=== PATIENT | male | born 1970 ===

== ENCOUNTER 2018-02-13 10:19 | Emergency (ER) | payer OTHER ==
[2018-02-13 10:22] VITALS: BMI 32.5
[2018-02-13 10:23] VITALS: TEMP 98.4
[2018-02-13] MEDS ORDERED: Sodium Chloride 0.9% 1,000 ML IV STA (10:33)
[2018-02-13 11:28] LABS: BASO % 0.2 % (0.0-2.0); EOS # 0.1 K/uL (0.0-0.7); EOS % 1.1 % (0.0-4.0); HEMOGLOBIN 16.9 g/dL (12.0-18.0); LYMPH # 0.6 K/uL (1.0-4.3); LYMPH % 10.2 % (20.0-40.0); MEAN CELL VOLUME 90.2 fl (80.0-94.0); MEAN CORPUSCULAR HGB CONC 34.3 g/dL (33.0-37.0); MEAN PLATELET VOLUME 8.1 fl (7.2-11.7); MONO # 0.7 K/uL (0.0-0.8); MONO % 10.9 % (0.0-10.0); NEUT # 4.9 K/uL (1.8-7.0); NEUT % 77.6 % (50.0-75.0); NRBC % 0.1 % (0.0-0.0); RBC 5.45 Mil/uL (4.40-5.90); RED CELL DISTRIBUTION WIDTH 13.7 % (11.5-14.5); WHITE BLOOD COUNT 6.3 K/uL (4.8-10.8)
[2018-02-13 11:29] LABS: ALB/GLOB RATIO 1.3 (1.0-2.1); ALBUMIN 4.7 g/dL (3.5-5.0); ALT/SGPT 65 U/L (21-72); AST/SGOT 41 U/L (17-59); BLOOD UREA NITROGEN 19 mg/dl (9-20); CALCIUM 9.2 mg/dL (8.4-10.2); GFR AFRICAN-AMERICAN > 60; GFR NON-AFRICAN AMERICAN > 60; LIPASE 138 U/L (23-300)
[2018-02-13] MEDS ORDERED: Alum-Mag Hydrox-Simethicone Susp (30 mL) PO STA (11:56)
[2018-02-13] MEDS ORDERED: Alum-Mag Hydrox-Simethicone Susp (30 mL) ONE (12:16)
--- NOTE | 2018-02-13 12:59 | ED PDOC ---
HPI: Abdomen Time Seen by Provider: 02/13/18 10:28 Chief Complaint (Nursing): Abdominal Pain Chief Complaint (Provider): Diffuse abdominal pain, nausea and diarrhea x 1 day History Per: Patient, Family History/Exam Limitations: no limitations Onset/Duration Of Symptoms: Days (1) Current Symptoms Are (Timing): Still Present Severity: Moderate Location Of Pain/Discomfort: Diffuse Quality Of Discomfort: Cramping, "Pain" Associated Symptoms: Nausea. denies: Fever, Chills, Vomiting Past Medical History Reviewed: Historical Data, Nursing Documentation, Vital Signs Vital Signs: Last Vital Signs Temp 98.4 F 02/13/18 10:22 Pulse 98 H 02/13/18 10:22 Resp 17 02/13/18 10:22 BP 107/66 02/13/18 10:22 Pulse Ox 98 02/13/18 10:22 - Medical History PMH: No Chronic Diseases - Surgical History Surgical History: No Surg Hx - Family History Family History: States: No Known Family Hx - Living Arrangements Living Arrangements: With Family - Social History Current smoker - smoking cessation education provided: No Alcohol: None Drugs: Denies - Home Medications Home Medications: Ambulatory Orders Medication Instructions Recorded Dicyclomine [Bentyl] 20 mg PO Q6H PRN #20 tab 02/13/18 Ondansetron ODT [Zofran ODT] 4 mg PO QID #10 odt 02/13/18 - Allergies Allergies/Adverse Reactions: Allergies Allergy/AdvReac Type Severity Reaction Status Date / Time No Known Allergies Allergy Verified 02/13/18 10:28 Review of Systems ROS Statement: Except As Marked, All Systems Reviewed And Found Negative Constitutional: Negative for: Fever, Chills Gastrointestinal: Positive for: Nausea, Abdominal Pain, Diarrhea Neurological: Negative for: Weakness Physical Exam - Reviewed Nursing Documentation Reviewed: Yes Vital Signs Reviewed: Yes - Physical Exam Appears: Positive for: Well, Non-toxic, No Acute Distress Head Exam: Positive for: ATRAUMATIC, NORMAL INSPECTION, NORMOCEPHALIC Skin: Positive for: Normal Color, Warm, DRY Eye Exam: Positive for: Normal appearance ENT: Positive for: Normal ENT Inspection Neck: Positive for: Normal, Painless ROM Cardiovascular/Chest: Positive for: Regular Rate, Rhythm Respiratory: Positive for: CNT, Normal Breath Sounds Gastrointestinal/Abdominal: Positive for: Normal Exam, Soft, Tenderness ( Diffuse ) Back: Positive for: Normal Inspection Extremity: Positive for: Normal ROM Neurologic/Psych: Positive for: Alert, Oriented - Laboratory Results Result Diagrams: 02/13/18 11:05 02/13/18 11:05 - ECG O2 Sat by Pulse Oximetry: 98 Medical Decision Making Medical Decision Making: LAbs normal. Urine normal. Pt reports feeling better on re-evaluation. Disposition - Clinical Impression Clinical Impression: Viral gastroenteritis - Patient ED Disposition Is Patient to be Admitted: No - Disposition Disposition: Routine/Home Disposition Time: 13:03 Condition: STABLE Prescriptions: Dicyclomine [Bentyl] 20 mg PO Q6H PRN #20 tab PRN Reason: Cramping Ondansetron ODT [Zofran ODT] 4 mg PO QID #10 odt Instructions: Viral Gastroenteritis, Adult (DC)
[2018-02-13 14:47] VITALS: BP 125/86; RESP 18; O2SAT 100
[2018-02-13 15:26] VITALS: PULSE 85
== END 2018-02-13 15:31 | disposition home or self-care (01) ==
LOC: H.ER 10:19
DX: A08.4 Viral intestinal infection, unspecified (principal)
CPT/HCPCS: 80053; 83690; 85025; 99283; J7040

== ENCOUNTER 2018-10-17 06:07 | Emergency (ER) | payer OTHER ==
[2018-10-17 06:07] VITALS: BMI 32.5
[2018-10-17 06:19] VITALS: BP 109/71; PULSE 85; RESP 17; TEMP 98.6; O2SAT 97
[2018-10-17] MEDS ORDERED: Albuterol-Ipratrop 3 mg / 0.5 (3 ml) UD INH STA (06:32)
[2018-10-17] MEDS ORDERED: Promethazine/Cod 6.25mg-10mg/5ml Syr UD PO STA (06:32)
[2018-10-17] MEDS ORDERED: Albuterol-Ipratrop 3 mg / 0.5 (3 ml) UD ONE (06:36)
--- NOTE | 2018-10-17 06:36 | ED PDOC ---
HPI: Influenza Time Seen by Provider: 10/17/18 06:28 Chief Complaint: Cough, Cold, Congestion Chief Complaint (Provider): Cough, Cold, Congestion History Per: Patient Exam Limitations: no limitations Symptoms include: fever, cough Additional complaint(s):: 48 y/o male with no significant PMHx presents to the ED for cough and fever, onset x2 weeks ago. Patient reports that he has cough that has been productive of green phlegm. Patient states he has been taking Nyquil with no relief. Patient denies vomiting, diarrhea. He has no associated shortness of breath or chest pain. Past Medical History Reviewed: Historical Data, Nursing Documentation, Vital Signs Vital Signs: Last Vital Signs Temp 98.6 F 10/17/18 06:16 Pulse 85 10/17/18 06:16 Resp 17 10/17/18 06:16 BP 109/71 10/17/18 06:16 Pulse Ox 97 10/17/18 06:16 - Medical History PMH: No Chronic Diseases - Surgical History Other surgeries: Cataract surgery in right eye - Family History Family History: States: Unknown Family Hx - Social History Current smoker - smoking cessation education provided: Yes (1-2 Cigars daily) - Home Medications Home Medications: Ambulatory Orders Medication Instructions Recorded Dicyclomine [Bentyl] 20 mg PO Q6H PRN #20 tab 02/13/18 Ondansetron ODT [Zofran ODT] 4 mg PO QID #10 odt 02/13/18 Albuterol Sulfate [Proair Hfa] 0.09 mg IH Q6 PRN #1 inh 10/17/18 Benzonatate [Tessalon Perle] 100 mg PO TID PRN #15 capsule 10/17/18 levoFLOXacin [Levaquin] 500 mg PO DAILY #10 tab 10/17/18 - Allergies Allergies/Adverse Reactions: Allergies Allergy/AdvReac Type Severity Reaction Status Date / Time No Known Allergies Allergy Verified 02/13/18 10:28 Review of Systems ROS Statement: Except As Marked, All Systems Reviewed And Found Negative Constitutional: Positive for: Fever Cardiovascular: Negative for: Chest Pain Respiratory: Positive for: Cough. Negative for: Shortness of Breath Gastrointestinal: Negative for: Vomiting, Diarrhea Physical Exam - Reviewed Nursing Documentation Reviewed: Yes Vital Signs Reviewed: Yes - Physical Exam Appears: Positive for: Well, Non-toxic, No Acute Distress Head Exam: Positive for: ATRAUMATIC, NORMOCEPHALIC Skin: Positive for: Normal Color, Warm, DRY Eye Exam: Positive for: EOMI, Normal appearance, PERRL ENT: Positive for: Normal ENT Inspection Neck: Positive for: Normal, Painless ROM Cardiovascular/Chest: Positive for: Regular Rate, Rhythm. Negative for: Murmur Respiratory: Positive for: Rales (at base of left lung). Negative for: Respiratory Distress Gastrointestinal/Abdominal: Positive for: Normal Exam, Soft. Negative for: Tenderness Extremity: Positive for: Normal ROM. Negative for: Pedal Edema, Deformity Neurologic/Psych: Positive for: Alert, Oriented. Negative for: Motor/Sensory Deficits Medical Decision Making Medical Decision Making: Time: 06:31 Initial Impression: 48 y/o male with cough and fever Initial Plan: * CXR * Duoneb 6 ml * Promethazine/Codeine 10 ml 06:45 Patient x-ray reviewed shows no clinically significant abnormalities. Patient reports improvement of symptoms and is stable for discharge. Diagnosis is acute bronchitis. Scribe Attestation: Documented by Lucas Brody acting as a scribe for Gonzalo Nunez MD. Provider Scribe Attestation: All medical record entries made by the Scribe were at my direction and personally dictated by me. I have reviewed the chart and agree that the record accurately reflects my personal performance of the history, physical exam, medical decision making, and the department course for this patient. I have also personally directed, reviewed, and agree with the discharge instructions and disposition. - ECG O2 Sat by Pulse Oximetry: 97 Disposition - Clinical Impression Clinical Impression: Bronchitis - Patient ED Disposition Is Patient to be Admitted: No - Disposition Referrals: [facility] [Outside] Disposition: Routine/Home Disposition Time: 06:45 Condition: STABLE Additional Instructions: CAROL ALLEN, thank you for letting us take care of you today. Your provider was Gonzalo Nunez MD and you were treated for COUGHING,CONGESTION. The emergency medical care you received today was directed at your acute symptoms. If you were prescribed any medication, please fill it and take as directed. It may take several days for your symptoms to resolve. Return to the Emergency Department if your symptoms worsen, do not improve, or if you have any other problems. Please contact your doctor or call one of the physicians/clinics you have been referred to that are listed on the Patient Visit Information form that is included in your discharge packet. Bring any paperwork you were given at discharge with you along with any medications you are taking to your follow up visit. Our treatment cannot replace ongoing medical care by a primary care provider outside of the emergency department. Thank you for allowing the [facility] team to be part of your care today. If you had an X-Ray or CT scan: A Radiologist will review the ED reading if any change in treatment is needed we will contact you. If you had a blood, urine, or wound culture: It will take several days for the results, if any change in treatment is needed we will contact you. If you had an STI test: It will take 48 hours for the results. Please call after 1 week if you have not heard back. Prescriptions: Albuterol Sulfate [Proair Hfa] 0.09 mg IH Q6 PRN #1 inh PRN Reason: Shortness Of Breath Benzonatate [Tessalon Perle] 100 mg PO TID PRN #15 capsule PRN Reason: Cough levoFLOXacin [Levaquin] 500 mg PO DAILY #10 tab Instructions: Acute Bronchitis Forms: [employer] (Armenian) Print Language: BOTSWANAN
[2018-10-17] MEDS ORDERED: levoFLOXacin 500 MG TAB PO STA (06:43)
--- NOTE | 2018-10-17 08:02 | RAD ---
Date of service: 10/17/2018 HISTORY: cough COMPARISON: No prior. TECHNIQUE: Chest PA and lateral FINDINGS: LUNGS: No active pulmonary disease. PLEURA: No significant pleural effusion identified. No pneumothorax apparent. CARDIOVASCULAR: No aortic atherosclerotic calcification present. Normal cardiac size. No pulmonary vascular congestion. OSSEOUS STRUCTURES: No significant abnormalities. VISUALIZED UPPER ABDOMEN: Normal. OTHER FINDINGS: None. IMPRESSION: No active disease.
== END 2018-10-17 07:14 | disposition home or self-care (01) ==
LOC: H.ER 06:07
DX: J20.9 Acute bronchitis, unspecified (principal)